=== PATIENT | female | born 1990 | race African-American/Black ===

== ENCOUNTER 2021-05-13 15:50 | Emergency (ER) | payer OTHER ==
[2021-05-13 17:02] VITALS: BP 116/79; PULSE 77; TEMP 98; BMI 36.0
== END 2021-05-13 20:10 | disposition home or self-care (01) ==
LOC: JERFT 15:50 → JER 15:50
DX: T81.31XA Disruption of external operation (surgical) wound, not elsewhere classified, initial encounter (principal)
CPT/HCPCS: 99282-25